=== PATIENT | male | born 1950 | race Asian ===

== ENCOUNTER 2024-01-03 06:23 | Inpatient (IN) | payer OTHER ==
[~2024-01-03] VITALS: Ht 165.1 cm; Wt 68.0 kg
[2024-01-03 06:24] VITALS: BP 122/61; PULSE 141; RESP 17; TEMP 98.2; O2SAT 100
[2024-01-03] MEDS ORDERED: ALBUTEROL 0.083% 2.5 MG/3 ML NEBU INH ONE (06:28)
[2024-01-03] MEDS ORDERED: DEXTROSE 50% 50 ML SYR IVP ONE (06:34)
[2024-01-03] MEDS: DEXTROSE 50% 50 ML SYR IVP ONE (06:40)
[2024-01-03] MEDS: NACL 0.9% 500 ML IV ONE (06:40)
[2024-01-03] MEDS: NOREPINEPHRINE 4 MG in DEXTROSE 5% 250 ML IV SCH (07:00)
[2024-01-03] MEDS ORDERED: PIPERACILLIN/TAZOBACTAM 3.375 GM VIAL IV ONE (07:04)
[2024-01-03] MEDS ORDERED: NOREPINEPHRINE 4 MG/4 ML VIAL IV ONE ×5 (07:11→11:32)
[2024-01-03] MEDS: ALBUTEROL 0.083% 2.5 MG/3 ML NEBU INH ONE (07:13)
[2024-01-03 07:16] LABS: BLOOD GAS PH 7.346 (7.35-7.45)
[2024-01-03 07:17] LABS: BLOOD GAS BASE EXCESS -9.7 mmol/L (-2.0-2.0); BLOOD GAS HCO3 14.9 mmol/L (22-26); BLOOD GAS O2 SAT% 98.9 % (92.0-98.5); BLOOD GAS PCO2 27.9 mmHg (35-45); BLOOD GAS PO2 186.2 mmHg (75-100)
[2024-01-03] MEDS: NACL 0.9% 1,000 ML IV ONE (07:18)
[2024-01-03] MEDS: PIPERACILLIN/TAZOBACTAM 3.375 GM in DEXTROSE 5% 50 ML IV ONE (07:30)
[2024-01-03 07:33] LABS: FLU A ANTIGEN POSITIVE (NEGATIVE); FLU B ANTIGEN NEGATIVE (NEGATIVE)
[2024-01-03] MEDS: NOREPINEPHRINE 4 MG in DEXTROSE 5% 250 ML IV ONE (07:33)
[2024-01-03 08:23] LABS: HEMATOCRIT 25.7 % (36-52); HEMOGLOBIN 7.7 g/dL (12.0-18.0); MEAN CORPUSCULAR HEMOGLOBIN 20 pg (27-31); MEAN CORPUSCULAR HGB CONC 30 g/dL (33-37); MEAN CORPUSCULAR VOLUME 67.6 fL (80-94); PLATELET COUNT (AUTO) 165 K/uL (140-450); RED BLOOD CELL COUNT(AUTO) 3.79 MIL/uL (4.20-6.10); RED CELL DISTRIBUTION WIDTH 22.6 % (11.6-13.7)
[2024-01-03] MEDS: DILTIAZEM 25 MG/5 ML VIAL IVP ONE (08:40)
[2024-01-03 08:42] LABS: CALCIUM 7.6 mg/dL (8.5-10.1); CARBON DIOXIDE 20.5 mmol/L (21-32); CHLORIDE 115 mmol/L (98-107); CREATININE 3.7 mg/dL (0.6-1.3); GLUCOSE 100 mg/dL (74-106); POTASSIUM 5.5 mmol/L (3.5-5.1); SODIUM SERUM 154 mmol/L (136-145)
[2024-01-03 08:45] LABS: UREA NITROGEN, BLOOD 138 mg/dL (7-18)
[2024-01-03 08:46] LABS: CREATINE KINASE, TOTAL 214 U/L (39-308); SALICYLATE < 2.8 mg/dL (2.8-20.0)
[2024-01-03 08:47] LABS: ALCOHOL, BLOOD < 3 mg/dL (<10)
[2024-01-03 08:48] LABS: ACETAMINOPHEN 5.4 ug/ml (10-30)
[2024-01-03 08:52] LABS: ALBUMIN 1.7 g/dL (3.4-5.0); BILIRUBIN,DIRECT 0.7 mg/dL (0.0-0.3); TOTAL BILIRUBIN 1.2 mg/dL (0.0-1.0); TOTAL PROTEIN, SERUM 5.3 g/dL (6.4-8.2)
[2024-01-03 08:54] LABS: WHITE BLOOD COUNT (AUTO) 16.1 K/uL (4.8-10.8)
[2024-01-03 08:55] LABS: ANISOCYTOSIS 1+; CORRECTED WHITE BLOOD COUNT 12.9 K/uL (4.5-11.0); HYPOCHROMASIA 1+; LYMPHOCYTES % (MANUAL) 4 % (20-46); MONOCYTES % (MANUAL) 5 % (5-12); POIKILOCYTOSIS 1+; POLYCHROMASIA 1+
[2024-01-03] MEDS ORDERED: OSELTAMIVIR PHOSPHATE 75 MG CAP GT ONE (09:05)
[2024-01-03] MEDS ORDERED: PHENYLEPHRINE 10 MG/ML VIAL ONE ×3 (09:44→12:41)
[2024-01-03] MEDS: PHENYLEPHRINE 10 MG in NACL 0.9% 250 ML IV ONE (09:52)
[2024-01-03] MEDS ORDERED: VASOPRESSIN 20 UNITS in NACL 0.9% 100 ML IV PRN ×2 (11:15→13:55)
[2024-01-03] MEDS ORDERED: VASOPRESSIN 20 UNITS/ML VIAL ONE ×2 (11:16→11:40)
[2024-01-03] MEDS: VASOPRESSIN 20 UNITS in NACL 0.9% 250 ML IV PRN (11:47)
[2024-01-03] MEDS: fentaNYL citrate 0.05 MG/ML VIAL IVP ONE (11:49)
[2024-01-03] MEDS: PHENYLEPHRINE 10 MG in NACL 0.9% 250 ML IV PRN (12:06)
[2024-01-03 12:07] LABS: BLOOD GAS BASE EXCESS -9.6 mmol/L (-2.0-2.0); BLOOD GAS HCO3 17.4 mmol/L (22-26); BLOOD GAS PCO2 42.5 mmHg (35-45); BLOOD GAS PH 7.229 (7.35-7.45); BLOOD GAS PO2 350.7 mmHg (75-100)
[2024-01-03 12:08] LABS: BLOOD GAS O2 SAT% 99.5 % (92.0-98.5)
[2024-01-03 12:10] LABS: INR 1.37 (0.8-1.2); PARTIAL THROMBOPLASTIN TIME 35.9 secs (22-35.6); PROTHROMBIN TIME 14.2 secs (10.8-13.4)
[2024-01-03] MEDS ORDERED: ALLO300T28 PO (12:10)
[2024-01-03] MEDS ORDERED: POTASSIUM CHLORIDE 10 MEQ TABER PO PRN (12:10)
[2024-01-03] MEDS ORDERED: MORPHINE SULFATE 4 MG/ML SYR IVP PRN (12:10)
[2024-01-03] MEDS ORDERED: VANCOMYCIN PER PHARMACY MC PRN (12:10)
[2024-01-03] MEDS ORDERED: MAG SULF 2000 MG/WATER PREMIX 50 ML IV PRN (12:10)
[2024-01-03] MEDS ORDERED: KCL 20 MEQ IN 100 mL PREMIX 200 ML IV PRN (12:10)
[2024-01-03] MEDS ORDERED: CHLO473L1 PO (12:10)
[2024-01-03] MEDS ORDERED: LORazepam 1 MG TAB PO PRN (12:10)
[2024-01-03] MEDS ORDERED: ACET-9525 PO (12:10)
[2024-01-03] MEDS ORDERED: ACETAMINOPHEN 325 MG TAB PO PRN (12:10)
[2024-01-03] MEDS ORDERED: ONDANSETRON 4 MG/2 ML VIAL IVP PRN (12:10)
[2024-01-03] MEDS ORDERED: ZOLPIDEM 5 MG TAB PO PRN (12:10)
[2024-01-03] MEDS: NOREPINEPHRINE 4 MG/4 ML VIAL IV ONE (12:55)
[2024-01-03 13:00] VITALS: BP 103/76; PULSE 105; RESP 22; TEMP 97.3; O2SAT 93
[2024-01-03] MEDS: PHENYLEPHRINE 10 MG/ML VIAL ONE ×2 (13:45→13:55)
[2024-01-03 14:00] VITALS: BP 114/54; PULSE 109; PULSE 133; RESP 21; O2SAT 64; O2SAT 89
[2024-01-03] MEDS: SODIUM BICARBONATE 8.4% PFS 50 MEQ/50 ML SYR IVP ONE (14:04)
[2024-01-03] MEDS: SODIUM BICARBONATE 8.4% PFS 50 MEQ/50 ML SYR IVP SCH (14:05)
[2024-01-03] MEDS: VANCOMYCIN 1,000 MG in DEXTROSE 5% 250 ML IV SCH (14:06)
[2024-01-03] MEDS: SODIUM BICARBONATE 8.4% 100 MEQ in DEXTROSE 5% 1,000 ML IV SCH (14:07)
[2024-01-03] MEDS ORDERED: PHENYLEPHRINE 10 MG/ML VIAL IV PRN (14:35)
[2024-01-03 15:00] VITALS: BP 127/107; PULSE 107; RESP 16; O2SAT 92
[2024-01-03] MEDS: AMIODARONE 450 MG in DEXTROSE 5% 250 ML IV SCH (15:11)
[2024-01-03] MEDS: PHENYLEPHRINE 40 MG in NACL 0.9% 250 ML IV PRN (15:26)
[2024-01-03] MEDS: NOREPINEPHRINE 16 MG in DEXTROSE 5% 250 ML IV PRN (15:30)
[2024-01-03] MEDS: HYDROcodone/APAP 5/325 MG 1 TAB TAB PO PRN (15:51)
[2024-01-03 16:00] VITALS: BP 79/39; PULSE 96; RESP 21; TEMP 97; O2SAT 100
[2024-01-03] MEDS: MIDODRINE 5 MG TAB GT SCH (16:30)
[2024-01-03] MEDS ORDERED: PIPERACILLIN/TAZOBACTAM 3.375 GM in DEXTROSE 5% 50 ML IV SCH (18:00)
[2024-01-03] MEDS ORDERED: PIPERACILLIN/TAZOBACTAM 2.25 GM in DEXTROSE 5% 50 ML IV SCH (21:00)
[2024-01-04] MEDS ORDERED: PANTOPRAZOLE 40 MG INJ VIAL IVP SCH (09:00)
[2024-01-04] MEDS ORDERED: OSELTAMIVIR PHOSPHATE 30 MG CAP GT SCH (21:00)
== END 2024-01-03 19:54 | DRG 871 ==
LOC: MED 06:23 → MIC 12:08
PROVIDERS: ADMIT Internal Medicine; ATTEND Internal Medicine
PROC: 06HY33Z Insertion of Infusion Device into Lower Vein, Percutaneous Approach (ICD-10-PCS; principal; 2024-01-03)
DX: A41.9 Sepsis, unspecified organism (principal); E43 Unspecified severe protein-calorie malnutrition; I21.A1 Myocardial infarction type 2; J69.0 Pneumonitis due to inhalation of food and vomit; J96.01 Acute respiratory failure with hypoxia; R65.21 Severe sepsis with septic shock; G93.41 Metabolic encephalopathy; N17.0 Acute kidney failure with tubular necrosis; J10.00 Influenza due to other identified influenza virus with unspecified type of pneumonia; E87.1 Hypo-osmolality and hyponatremia; E87.20 Acidosis, unspecified; C85.90 Non-Hodgkin lymphoma, unspecified, unspecified site; Z20.822 Contact with and (suspected) exposure to COVID-19; J44.9 Chronic obstructive pulmonary disease, unspecified; E87.6 Hypokalemia; I48.91 Unspecified atrial fibrillation; D64.9 Anemia, unspecified; Z79.899 Other long term (current) drug therapy; Z68.25 Body mass index [BMI] 25.0-25.9, adult; I46.9 Cardiac arrest, cause unspecified
CPT/HCPCS: 36415; 36600; 70450; 70490; 71045; 80048; 80076; 82140; 82550; 82803; 82948; 83605; 83880; 84484; 85025; 85610; 85730; 86886; 86900; 86901; 86920; 87040; 87081; 93005; 93971; 94640; 96365; 96375; 99291; 99292; G0480; G0482; J0282; J2370; J2543; J3010; J3370; J3490; J7030; J7060; J7613; Q0092